=== PATIENT | male | born 1975 | race Caucasian/White ===

== ENCOUNTER 2016-07-13 20:38 | Emergency (ER) | payer OTHER ==
[~2016-07-13 20:38] MED LIST: CLEOCIN HCL300 MG PO; PERCOCET 325 MG1 TA2 PO
[2016-07-13 20:59] VITALS: BP 152/89
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
--- NOTE | 2016-07-13 22:21 | RADIOLOGY REPORT ---
EXAMINATION: XR SHOULDER, RIGHT CLINICAL INFORMATION: Fall. COMPARISON: None TECHNIQUE: 4 views. of the right shoulder. FINDINGS: The bones and soft tissues are normal. No fracture. Glenohumeral and acromioclavicular alignment is anatomic with normal joint space. No abnormal soft tissue calcifications. IMPRESSION: No acute abnormality of right shoulder.
--- NOTE | 2016-07-13 22:23 | RADIOLOGY REPORT ---
EXAMINATION: XR ELBOW, RIGHT CLINICAL INFORMATION: Fall. Pain. COMPARISON: None TECHNIQUE: Four views of the right elbow. FINDINGS: No fracture. No dislocation. No joint effusion. There are couple tiny corticated osseous densities adjacent to the elbow that are old. One is adjacent to the lateral epicondyle humerus. No other projects over the joint space on the oblique view between the radius and ulna though is likely not intra-articular. There is spur of the olecranon posteriorly IMPRESSION: No acute abnormality of the elbow.
[2016-07-13] MEDS ORDERED: TRAMADOL HCL50 M1 PO (23:01)
== END 2016-07-13 23:33 ==
LOC: ERH 20:38
DX: S51.811A Laceration without foreign body of right forearm, initial encounter (principal); S81.011A Laceration without foreign body, right knee, initial encounter; M25.511 Pain in right shoulder; V86.59XA Driver of other special all-terrain or other off-road motor vehicle injured in nontraffic accident, initial encounter; Y93.9 Activity, unspecified; Y92.9 Unspecified place or not applicable
CPT/HCPCS: 73030-RT; 73080-RT; 90471; 90714